=== PATIENT | female | born 1995 ===

== ENCOUNTER 2023-01-26 11:00 | Inpatient (IN) | payer OTHER ==
[~2023-01-26] VITALS: Ht 162.6 cm; Wt 113.4 kg
[2023-01-26] MEDS ORDERED: ATIVAN0.5 M1 PO (13:27)
[2023-01-26] MEDS ORDERED: ASENAPINE MALE2.5 MG SL (13:27)
[2023-01-31] MEDS ORDERED: Tylenol #3 PO (08:44)
[2023-01-31] MEDS ORDERED: NAPR500T14 PO (08:44)
== END 2023-01-31 15:07 | disposition home or self-care (01) | DRG 743 ==
LOC: SURH 01-28 07:00 → O/R 01-28 09:00 → SURH 01-28 11:00 → OB/GYN 01-28 18:42 → SURH 01-28 18:46
PROVIDERS: ADMIT Obstetrics & Gynecology; ATTEND Obstetrics & Gynecology
PROC: 0UDB8ZZ Extraction of Endometrium, Via Natural or Artificial Opening Endoscopic (ICD-10-PCS; 2023-01-28)
PROC: 0UB00ZZ Excision of Right Ovary, Open Approach (ICD-10-PCS; 2023-01-28)
PROC: 0UT90ZZ Resection of Uterus, Open Approach (ICD-10-PCS; 2023-01-28)
PROC: 0UNF0ZZ Release Cul-de-sac, Open Approach (ICD-10-PCS; 2023-01-28)
PROC: 0UN50ZZ Release Right Fallopian Tube, Open Approach (ICD-10-PCS; 2023-01-28)
PROC: 0UN10ZZ Release Left Ovary, Open Approach (ICD-10-PCS; 2023-01-28)
PROC: 0DNE0ZZ Release Large Intestine, Open Approach (ICD-10-PCS; 2023-01-28)
PROC: 0UB98ZZ Excision of Uterus, Via Natural or Artificial Opening Endoscopic (ICD-10-PCS; principal; 2023-01-28 07:00)
DX: D27.0 Benign neoplasm of right ovary (principal); N84.0 Polyp of corpus uteri; Z20.822 Contact with and (suspected) exposure to COVID-19

== ENCOUNTER 2024-12-01 09:06 | Outpatient (CLI) | payer OTHER ==
[~2024-12-01 09:06] MED LIST: ASENAPINE MALE2.5 MG SL; ATIVAN0.5 M1 PO; NAPR500T14 PO; Tylenol #3 PO
== END 2024-12-01 09:18 | disposition home or self-care (01) ==
LOC: SONOGRAMA 09:06
PROVIDERS: ATTEND Internal Medicine Geriatric Medicine
DX: R80.9 Proteinuria, unspecified (principal); R10.9 Unspecified abdominal pain; R74.8 Abnormal levels of other serum enzymes

== ENCOUNTER 2025-03-23 10:08 | Outpatient (CLI) | payer OTHER | END 2025-03-23 10:16 | disposition home or self-care (01) | LOC: MRI 10:08 | PROVIDERS: ATTEND Neuromusculoskeletal Medicine & OMM | DX: R40.4 Transient alteration of awareness (principal); R56.9 Unspecified convulsions | CPT/HCPCS: 70553 ==